=== PATIENT | female | born 1990 | race American Indian/Alaskan Native ===

== ENCOUNTER 2019-05-10 18:11 | Inpatient (IN) | payer MEDICAID ==
[2019-05-10] MEDS ORDERED: LACTATED RINGERS 2,000 ML ONE (19:23)
[2019-05-10] MEDS ORDERED: PEPCID IV ONE ×2 (19:30→19:39)
[2019-05-10] MEDS ORDERED: BICITRA PO ONE (19:30)
[2019-05-10] MEDS ORDERED: REGLAN IV ONE (19:30)
[2019-05-10] MEDS ORDERED: PEPCID ONE (19:38)
--- NOTE | 2019-05-10 19:39 | History and Physical Report ---
History of Present Illness Date of examination: 05/10/19 Date of admission: 05/10/19 18:11 Chief complaint: Preeclampsia History of present illness: Pt is a 29yo BF EDC 06/01/19; EGA 36 6/7 weeks presents to L&D from [facility] for delivery due to Preeclampsia. She had late care at [facility] since 26 weeks and co-managed by [facility] for h/o IUFD and previous C Section. She complains of headaches and blurred vision although BP was 143/78. records are available and GBS is unknown. Past History Past Medical History: no pertinent history Past Surgical History: section Family/Genetic History: none Social history: no significant social history, single - Obstetrical History Expected Date of Delivery: 06/01/19 Actual Gestation: 36 Week(s) 6 Day(s) : 2 Medications and Allergies Allergies Allergy/AdvReac Type Severity Reaction Status Date / Time No Known Allergies Allergy Verified 03/30/14 01:59 Home Medications Medication Instructions Recorded Confirmed Last Taken Type Mv-Mn/Iron/FA/Herbal/Digestive 1 tab PO DAILY 03/30/14 05/10/19 04/12/14 22:00 History [ One Tablet] 1 Active Meds: Active Medications Citric Acid/Sodium Citrate (Bicitra) 30 ml PO ONCE ONE Stop: 05/10/19 19:31 Famotidine (Pepcid) 20 mg IV ONCE ONE Stop: 05/10/19 19:31 Cefazolin Sodium (Ancef/Sterile Water 2 Gm/20 Ml) 2 gm in 20 mls @ 80 mls/hr IV PREOP NR; Protocol Oxytocin/Sodium Chloride (Pitocin/Ns 20 Unit/1000ml Drip) 20 units in 1,000 mls @ 0 mls/hr IV TITR ANTONINA Lactated Ringer's (Lactated Ringers) 1,000 mls @ 2,250 mls/hr IV PREOP ANTONINA Stop: 05/11/19 20:27 Metoclopramide HCl (Reglan) 10 mg IV ONCE ONE Stop: 05/10/19 19:31 Review of Systems All systems: negative - Vital Signs Vital signs: Vital Signs Pulse BP 97 H 144/81 05/10/19 19:19 05/10/19 19:19 Temp Pulse Resp BP Pulse Ox 97 H 144/81 05/10/19 19:19 05/10/19 19:19 - Physical Exam Breasts: Positive: deferred Cardiovascular: Regular rate Lungs: Positive: Clear to auscultation Abdomen: Positive: normal appearance Genitourinary (Female): Positive: normal external genitalia Uterus: Positive: enlarged Extremities: Positive: normal - Obstetrical FHR: category 1 Uterine Contraction Monitor Mode: External Uterine Contraction Pattern: Absent Results Result Diagrams: 05/10/19 20:05 All other labs normal. Ultrasound: report reviewed Assessment and Plan - Patient Problems (1) 36 weeks gestation of Onset Date: 05/10/19 Current Visit: Yes Status: Acute Plan to address problem: A: IUP @ 36 6/7 weeks Previous C Section Preeclampsia H/O IUFD P: Admit for a Repeat C Section Obtain PIH labs (2) Previous section Onset Date: 05/10/19 Current Visit: Yes Status: Chronic (3) History of intrauterine in previous Onset Date: 05/10/19 Current Visit: Yes Status: Resolved
[2019-05-10] MEDS: LACTATED RINGERS 1,000 ML IV SCH ×2 (19:50→21:44)
--- NOTE | 2019-05-10 19:53 | Anesthesia Consultation ---
Anesthesia Consult and Med Hx Date of service: 05/10/19 - Airway Anesthetic Teeth Evaluation: Good ROM Head & Neck: Adequate Mental/Hyoid Distance: Adequate Mallampati Class: Class II Intubation Access Assessment: Good - Pulmonary Exam CTA: Yes - Cardiac Exam Cardiac Exam: RRR - Pre-Operative Health Status ASA Pre-Surgery Classification: ASA2 Proposed Anesthetic Plan: Spinal - Pulmonary Hx Asthma: No COPD: No Hx Pneumonia: No - Cardiovascular System Hx Hypertension: No - Central Nervous System Hx Seizures: No Hx Psychiatric Problems: No - Endocrine Hx Renal Disease: No Hx End Stage Renal Disease: No Hx Hypothyroidism: No Hx Hyperthyroidism: No - Hematic Hx Anemia: No Hx Sickle Cell Disease: No - Other Systems Hx Alcohol Use: No
--- NOTE | 2019-05-10 19:57 | Anesthesia Day of Surgery ---
Anesthesia Day of Surgery - Day of Surgery Patient Examined: Yes Patient H&P Reviewed: Yes Patient is NPO: No (1400 heavy meal)
[2019-05-10] MEDS ORDERED: ANCEF/STERILE WATER 2 GM/20 ML 2 GM/20 ML SYRINGE IV NR (20:00)
[2019-05-10] MEDS ORDERED: PITOCin/NS 20 UNIT/1000ML DRIP 20 UNITS/1,000 ML BAG IV SCH ×2 (20:00→23:45)
[2019-05-10 20:26] LABS: Basophils % (Auto) 0.5 % (0.0-1.8); Eosinophils # (Auto) 0.1 K/mm3 (0.0-0.4); Hematocrit 35.8 % (30.3-42.9); Hemoglobin 12.7 gm/dl (10.1-14.3); Lymphocytes # (Auto) 1.5 K/mm3 (1.2-5.4); Lymphocytes % (Auto) 20.7 % (13.4-35.0); Mean Corpuscular HGB Conc 35 % (30-34); Mean Corpuscular Volume 98 fl (79-97); Monocytes # (Auto) 0.5 K/mm3 (0.0-0.8); Monocytes % (Auto) 6.8 % (0.0-7.3); Platelet Count 314 K/mm3 (140-440); Red Blood Count 3.66 M/mm3 (3.65-5.03); Red Cell Distribution Width 12.6 % (13.2-15.2)
[2019-05-10] MEDS ORDERED: BICITRA ONE (21:49)
[2019-05-10] MEDS ORDERED: SUBLIMAZE ONE (21:55)
[2019-05-10] MEDS ORDERED: ZOFRAN ONE (21:55)
[2019-05-10] MEDS ORDERED: DIPRIVAN 10 MG/ML IV ONE ×2 (21:57→22:31)
[2019-05-10] MEDS ORDERED: ANCEF/STERILE WATER 2 GM/20 ML IV ONE (22:00)
[2019-05-10] MEDS ORDERED: WATER FOR IRRIG STERILE IR ONE (22:10)
[2019-05-10] MEDS ORDERED: NACL 0.9% IR ONE (22:10)
[2019-05-10] MEDS ORDERED: DILAUDID ONE (23:04)
[2019-05-10] MEDS ORDERED: TORADOL ONE (23:05)
[2019-05-10] MEDS ORDERED: BENADRYL ONE (23:05)
[2019-05-10] MEDS ORDERED: NORCO 5/325 PO PRN (23:09)
[2019-05-10] MEDS ORDERED: MILK OF MAGNESIA PO PRN (23:09)
[2019-05-10] MEDS ORDERED: LANSINOH TP PRN (23:09)
[2019-05-10] MEDS ORDERED: TUCKS PAD TP PRN (23:09)
[2019-05-10] MEDS ORDERED: ZOFRAN IV PRN ×2 (23:09→23:23)
[2019-05-10] MEDS ORDERED: NARCAN 0.4 MG/1 ML IV PRN ×2 (23:09→23:23)
[2019-05-10] MEDS ORDERED: TORADOL IV PRN (23:09)
[2019-05-10] MEDS ORDERED: MYLICON PO PRN (23:09)
[2019-05-10] MEDS ORDERED: TYLENOL PO PRN (23:09)
[2019-05-10] MEDS ORDERED: SENOKOT PO PRN (23:09)
--- NOTE | 2019-05-10 23:18 | Operative Report ---
Operative Report Operative Report: Date of procedure: 05/10/2019 Pre-operative diagnosis: 1. Intrauterine at 36-6/7 weeks 2. Previo us 3. Preeclampsia 4. History of IUFD Post-operative diagnosis: Same Procedure name(s): Repeat low transverse section Surgeon: Srinath Dill MD Other Sports Official: None Anesthesia: Spinal anesthesia and general by Alberto Rodriguez CRNA EBL: 300 mL's Findings: A 2711 g male infant Apgars 1 at 1 minute 7 and 5 minutes. Clear amniotic fluid. Normal uterus. Normal tubes and ovaries bilaterally. Procedure: After the patient was prepped and draped in usual sterile fashion, and after satisfactory level of epidural anesthesia was obtained, the skin knife was used to make a transverse skin incision through the previous skin scar. The incision was excised down to layer of the fascia, which was nicked in the midline and extended laterally using the Bovie cautery. The rectus muscles were dissected off the rectus fascia both superiorly and inferiorly. The rectus bellies in the midline, and the peritoneum was entered under direct visualization. The peritoneal incision was extended superiorly and inferiorly. A bladder flap was created and the bladder blade was then placed. The uterus was scored in a curvilinear linear fashion, entered in the midline revealing clear amniotic fluid. The 's head was delivered onto the surgical field, and the oropharynx and nasopharynx were bulb suctioned. The rest of the infant's body was delivered, cord was doubly clamped and cut and the infant was handed to the waiting respiratory team. Cord blood was then obtained. The placenta was manually removed from the uterus, and the uterus removed from its normal anatomical position. After gentle uterine lavage, the incision was inspected and found to be without extensions. It was then closed in 2 layers using 0 Vicryl suture in a running interlocking fashion, the second layer imbricating the first. After good hemostasis was achieved, copious amounts or irrigation was performed, and the gutters were suctioned free of blood and blood clots. The Tisseel sealant was sprayed across the uterine incision. The uterus was then returned to its normal anatomical position, and after excellent hemostasis assured, the peritoneum was re-approximated using 3-0 Vicryl suture in a running interlocking fashion, and then the rectus muscles were re- approximated using 3-0 Vicryl suture in a [id number] configuration. The fascia was then re-approximated using 0 Vicryl suture in running interlocking fashion. The subcutaneous layer was made hemostatic using Bovie cautery, the Tisseel sealant was sprayed across the fascial incision and the skin edges re- approximated using 4-0 Vicryl suture in a sub-cuticular fashion. Patient tolerated the procedure well was transported to recovery in stable condition.
[2019-05-10] MEDS ORDERED: PHENERGAN PR PRN (23:23)
[2019-05-10] MEDS ORDERED: PHENERGAN PO PRN (23:23)
[2019-05-10] MEDS ORDERED: MORPHINE IV PRN (23:23)
[2019-05-10] MEDS ORDERED: DILAUDID IV PRN (23:23)
--- NOTE | 2019-05-10 23:23 | Post Anesthesia Evaluation ---
- Post Anesthesia Evaluation Patient Participated: Yes Airway Patent: Yes Stable Respiratory Function: Yes Nausea/Vomiting: No Temp > 96.8F: Yes Pain Manageable: Yes Adequeate Hydration: Yes Anesthesia Complications: No Block Receding Appropriately: Yes Patient on Ventilator: No
[2019-05-10] MEDS ORDERED: D5LR 1,000 ML IV SCH (23:45)
[2019-05-10] MEDS ORDERED: SODIUM CHLORIDE FLUSH SYRINGE 10 ML IV NR ×2 (23:45)
[2019-05-10] MEDS: NUBAIN IV PRN (23:46)
[2019-05-11] MEDS: NUBAIN IV PRN (02:08)
[2019-05-11] MEDS: ANCEF/NS 1 GM/50 ML 1 GM/50 ML BAG IV SCH ×2 (03:24→11:13)
[2019-05-11] MEDS: PERCOCET 5/325 PO PRN ×4 (03:29→21:55)
[2019-05-11] MEDS: IBUPROFEN PO PRN ×2 (03:30→21:56)
[2019-05-11] MEDS ORDERED: BOOSTRIX IM ONE (06:00)
[2019-05-11] MEDS ORDERED: M-M-R II VACCINE SUB-Q ONE (06:00)
--- NOTE | 2019-05-11 09:49 | Progress Note ---
Assessment and Plan - Patient Problems (1) 36 weeks gestation of Onset Date: 05/10/19 Current Visit: Yes Status: Resolved (2) Previous section Onset Date: 05/10/19 Current Visit: Yes Status: Resolved (3) History of intrauterine in previous Onset Date: 05/10/19 Current Visit: Yes Status: Resolved (4) Status post section Onset Date: 05/11/19 Current Visit: Yes Status: Resolved Plan to address problem: A: S/P Repeat C Section - POD #1 Doing well Asymptomatic anemia - stable P: Continue RPOC Anticipate discharge in 24-48hrs Subjective - Subjective Date of service: 05/11/19 Principal diagnosis: s/p Repeat C Section - POD #1 Interval history: Pt is feeling well without complaints. Bleeding improved. Patient reports: appetite normal, voiding normally, pain well controlled, no dizzy ambulation, no flatus, no ambulating normally, no nauseated : doing well, nursing well, bottle feeding Objective - Vital Signs Latest vital signs: Vital Signs Temp Pulse Resp BP BP Pulse Ox 05/11/19 09:16 98.3 F 106 H 20 138/77 98 05/11/19 06:15 18 05/11/19 05:45 18 05/11/19 04:57 98.3 F 89 20 129/73 98 05/11/19 04:30 18 05/11/19 04:29 18 05/11/19 03:30 18 05/11/19 03:29 18 05/11/19 03:08 18 05/11/19 02:08 18 05/11/19 01:03 97.3 F L 91 H 18 139/69 100 05/11/19 00:46 18 05/11/19 00:20 98.2 F 80 20 153/91 100 05/11/19 00:05 98.2 F 87 20 150/93 05/10/19 23:50 98.2 F 80 20 148/84 100 05/10/19 23:35 97.8 F 83 15 144/80 100 05/10/19 23:30 97.8 F 89 16 125/67 100 05/10/19 23:25 97.8 F 83 16 135/69 98 05/10/19 23:20 97.8 F 05/10/19 21:34 81 138/85 05/10/19 21:19 92 H 144/87 05/10/19 21:06 89 153/93 05/10/19 20:20 89 145/92 05/10/19 20:04 93 H 121/72 05/10/19 19:51 90 138/81 05/10/19 19:44 97.6 F 18 05/10/19 19:34 100 H 144/93 05/10/19 19:19 97 H 144/81 Intake and Output 05/10/19 05/11/19 05/11/19 22:59 06:59 14:59 Intake Total 1500 1170 240 Output Total 1050 Balance 1500 120 240 Intake: IV 1500 810 Lactated Ringers 1,000 ml 1000 @ 2250 mls/hr IV PREOP ANTONINA Rx#:[id number] Right Forearm 10 Oral 240 Intake, Free Water 360 Output: Urine 1050 Indwelling Catheter 900 Other: Total, Intake Amount 240 Total, Output Amount 900 Weight 108.862 kg Estimated Blood Loss 300 - Exam Breasts: Present: deferred Abdomen: Present: normal appearance, soft Uterus: Present: normal, firm, fundal height below umbilicus Extremities: Present: normal Incision: Present: normal, dry, intact, dressed - Labs Labs: Abnormal lab results 05/10/19 Range/Units 20:05 MCV 98 H (79-97) fl MCH 35 H (28-32) pg MCHC 35 H (30-34) % RDW 12.6 L (13.2-15.2) % Seg Neutrophils % 71.0 H (40.0-70.0) % Laboratory Tests 05/10/19 05/10/19 05/10/19 20:05 20:05 20:05 WBC 7.1 RBC 3.66 Hgb 12.7 Hct 35.8 MCV 98 H MCH 35 H MCHC 35 H RDW 12.6 L Plt Count 314 Lymph % (Auto) 20.7 [place] % (Auto) 6.8 Eos % (Auto) 1.0 Baso % (Auto) 0.5 Lymph # 1.5 [place] # 0.5 Eos # 0.1 Baso # 0.0 Seg Neutrophils % 71.0 H Seg Neutrophils # 5.0 Hep Bs Antigen HIV 1&2 Antibody Rapid HIV P24 Antigen Rubella IgG Antibody Immune Blood Type O POSITIVE Antibody Screen Negative 05/10/19 05/10/1919 20:05 20:05 11:12 WBC RBC Hgb 11.1 Hct 32.1 MCV MCH MCHC RDW Plt Count Lymph % (Auto) [place] % (Auto) Eos % (Auto) Baso % (Auto) Lymph # [place] # Eos # Baso # Seg Neutrophils % Seg Neutrophils # Hep Bs Antigen Non-reactive HIV 1&2 Antibody Rapid Non react HIV P24 Antigen Non react Rubella IgG Antibody Blood Type Antibody Screen
[2019-05-11] MEDS: FEOSOL PO SCH (10:01)
[2019-05-11] MEDS: PRENATAL VITAMIN PO SCH (10:03)
[2019-05-11] MEDS: NORMODYNE PO SCH ×2 (10:04→22:00)
[2019-05-11 11:35] LABS: Hematocrit 32.1 % (30.3-42.9); Hemoglobin 11.1 gm/dl (10.1-14.3)
[2019-05-12] MEDS: PERCOCET 5/325 PO PRN ×3 (03:49→14:31)
[2019-05-12] MEDS: IBUPROFEN PO PRN ×4 (03:50→20:25)
--- NOTE | 2019-05-12 09:17 | Progress Note ---
Assessment and Plan - Patient Problems (1) 36 weeks gestation of Onset Date: 05/10/19 Current Visit: Yes Status: Resolved (2) Previous section Onset Date: 05/10/19 Current Visit: Yes Status: Resolved (3) History of intrauterine in previous Onset Date: 05/10/19 Current Visit: Yes Status: Resolved (4) Status post section Onset Date: 05/11/19 Current Visit: Yes Status: Resolved Plan to address problem: A: S/P Repeat C Section - POD #2 Doing well Asymptomatic anemia - stable P: May go home today. Subjective - Subjective Date of service: 05/12/19 Principal diagnosis: s/p Repeat C Section - POD #2 Interval history: Pt is feeling well without complaints. She is tolerating a reg diet without nausea or vomiting, ambulating and voiding without difficulty. Patient reports: appetite normal, voiding normally, pain well controlled, flatus, ambulating normally, no dizzy ambulation, no nauseated : doing well, bottle feeding Objective - Vital Signs Latest vital signs: Vital Signs Temp Pulse Resp BP Pulse Ox 05/11/19 23:10 98.2 F 93 H 20 124/75 98 05/11/19 22:00 146/82 05/11/19 20:23 98.2 F 73 20 146/84 100 05/11/19 17:36 97.6 F 87 16 137/82 100 05/11/19 16:12 20 05/11/19 13:12 98.0 F 96 H 16 134/84 99 05/11/19 10:02 20 Intake and Output 05/11/19 05/12/19 05/12/19 22:59 06:59 14:59 Output Total 800 Balance -800 Output: Urine 800 Indwelling Catheter 800 Other: Total, Output Amount 600 # Voids Indwelling Catheter 3 - Exam Breasts: Present: deferred Abdomen: Present: normal appearance, soft Uterus: Present: normal, firm, fundal height below umbilicus Extremities: Present: normal Incision: Present: normal, dry, intact, dressed
[2019-05-12] MEDS: FEOSOL PO SCH (09:46)
[2019-05-12] MEDS: NORMODYNE PO SCH (09:46)
[2019-05-12] MEDS: PRENATAL VITAMIN PO SCH (09:46)
--- NOTE | 2019-05-12 15:08 | Discharge Summary ---
Providers - Providers Date of Admission: 05/10/19 18:11 Date of discharge: 05/12/19 Attending physician: ROSALIA GLYNN Primary care physician: ROSALIA GLYNN Hospitalization Reason for admission: section, IUP at term, other (Preeclampsia; History of IUFD) Delivery: Procedure: section, repeat low transverse Episiotomy: none Laceration: none Incision: normal, dry, intact Other procedures: none complications: none Discharge diagnosis: IUP at term delivered baby: male Hospital course: Pt is a 29yo BF EDC 06/01/19; EGA 36 6/7 weeks who presented to L&D from [facility] for delivery due to Preeclampsia. She had late care at [facility] since 26 weeks and co-managed by [facility] for h/o IUFD and previous C Section. She complained of headaches and blurred vision and thus was delivered by an uncomplicated Repeat C Section. By POD #2 she was tolerating a reg diet without nausea or vomiting, ambulating and voiding without difficulty. She was therefore discharged to home on POD #2 with Labetolol 200mg BID in stable condition. Condition at discharge: Good Disposition: DC-01 TO HOME OR SELFCARE - Discharge Diagnoses (1) 36 weeks gestation of Status: Resolved (2) Previous section Status: Resolved (3) History of intrauterine in previous Status: Resolved (4) Status post section Status: Resolved Plan - Discharge Medications Prescriptions: Ferrous Sulfate [Feosol 325 MG tab] 325 mg PO QDAY #30 tablet Labetalol [Labetalol 200mg TAB] 200 mg PO BID #60 tablet Ibuprofen [Motrin 800 MG tab] 800 mg PO Q6H PRN #30 tablet PRN Reason: Pain, Mild (1-3) oxyCODONE /ACETAMINOPHEN [Percocet 5/325 mg] 1 tab PO Q6H PRN #30 tablet PRN Reason: Pain, Moderate (4-6) Vit-Fe Fumar-FA [ Vitamin] 1 each PO QDAY #30 tablet - Provider Discharge Summary Activity: routine, no sex for 6 weeks, no heavy lifting 4 weeks, no strenuous exercise Diet: routine Instructions: routine Additional instructions: [] Smoking cessation referral if applicable(refer to patient education folder for contact #) [] Refer to [facility] Booklet Call your doctor immediately for: * Fever > 100.5 * Heavy vaginal bleeding ( >1 pad per hour) * Severe persistent headache * Shortness of breath * Reddened, hot, painful area to leg or breast * Drainage or odor from incision. * Keep incision clean and dry at all times and follow doctor's instructions regarding bathing/showering - Follow up plan Follow up: ROSALIA GLYNN MD [Primary Care Provider] - 14 Days Forms: Work/School Release Form
[2019-05-12 21:28] VITALS: BP 136/88
== END 2019-05-12 20:40 | disposition home or self-care (01) | DRG 766 ==
LOC: LD 18:11 → OB 05-11 00:34
PROVIDERS: ADMIT Obstetrics & Gynecology; ATTEND Obstetrics & Gynecology
PROC: 10D00Z1 Extraction of Products of Conception, Low, Open Approach (ICD-10-PCS; principal; 2019-05-10)
DX: O14.93 Unspecified pre-eclampsia, third trimester (principal); O34.211 Maternal care for low transverse scar from previous cesarean delivery; Z3A.36 36 weeks gestation of pregnancy; Z37.0 Single live birth
CPT/HCPCS: 36415; 85014; 85018; 85025; 86592; 86706; 86762; 86850; 86900; 86901; 87806; 90715; G0378; J0690; J1170; J1200; J1885; J2300; J2405; J2590; J2704; J2765; J3010; J7120; J7121